=== PATIENT | male | born 1955 | race African-American/Black ===

== ENCOUNTER 2016-09-06 16:17 | Emergency (ER) | payer OTHER ==
[~2016-09-06] VITALS: Ht 177.8 cm; Wt 68.0 kg
[~2016-09-06 16:17] MED LIST: FLOMAX0.4 MG PO; IBUPROFEN 600600 M1 PO; IMITREX 6M6 MG/0.5 M; IMITREX 6M6 MG/0.5 M SQ; IMITREX6 MG/0.51 SQ; OXYCODONE HCL 55 MG PO; VERAPAMIL HCL 880 M1; ZOCOR 10 MG TAB10 MG PO
[2016-09-06] MEDS ORDERED: INDOMETHACIN 2525 MG PO (17:33)
[2016-09-06] MEDS ORDERED: IMITREX 6M6 MG/0.5 M SQ (17:33)
[2016-09-06] MEDS ORDERED: ONDANSETRON HCL4 M2 PO (17:33)
[2016-09-06 17:42] VITALS: BP 151/82
== END 2016-09-06 17:43 | disposition home or self-care (01) ==
LOC: ER 16:17
DX: G44.009 Cluster headache syndrome, unspecified, not intractable (principal); I10 Essential (primary) hypertension; Z88.6 Allergy status to analgesic agent

== ENCOUNTER 2017-05-01 03:31 | Emergency (ER) | payer OTHER ==
[~2017-05-01] VITALS: Ht 177.8 cm; Wt 79.4 kg
[~2017-05-01 03:31] MED LIST changes: -IMITREX 6M6 MG/0.5 M; +IMITREX 6M6 MG/0.5 M SUBQ; +IMITREX SUBQ; +INDOMETHACIN 2525 MG PO; +ONDANSETRON HCL4 M2 PO; +PERCOCET 7.5-31 EACH PO; -VERAPAMIL HCL 880 M1; +VERAPAMIL HCL 880 M1 PO
[2017-05-01] MEDS ORDERED: PHENERGAN 25 MG25 M1 PO (03:42)
[2017-05-01] MEDS ORDERED: PROMS25 WY RECTAL (03:42)
[2017-05-01 04:47] VITALS: BP 164/68
== END 2017-05-01 04:49 | disposition home or self-care (01) ==
LOC: ER 03:31
DX: G44.009 Cluster headache syndrome, unspecified, not intractable (principal); I10 Essential (primary) hypertension

== ENCOUNTER 2017-06-04 12:50 | Emergency (ER) | payer OTHER ==
[~2017-06-04] VITALS: Ht 177.8 cm; Wt 79.4 kg
[~2017-06-04 12:50] MED LIST changes: +PHENERGAN 25 MG25 M1 PO; +PROMS25 WY RECTAL
[2017-06-04] MEDS ORDERED: IMITREX 6M6 MG/0.5 M INJECTION (15:06)
== END 2017-06-04 15:39 | disposition home or self-care (01) ==
LOC: ER 12:50
DX: G44.009 Cluster headache syndrome, unspecified, not intractable (principal); I10 Essential (primary) hypertension; Z88.6 Allergy status to analgesic agent

== ENCOUNTER 2017-07-04 14:19 | Emergency (ER) | payer OTHER ==
[~2017-07-04] VITALS: Ht 177.8 cm; Wt 79.4 kg
[~2017-07-04 14:19] MED LIST changes: +IMITREX 6M6 MG/0.5 M INJECTION
[2017-07-04] MEDS ORDERED: IMITREX6 MG/0.51 SUBQ (15:15)
== END 2017-07-04 15:23 | disposition home or self-care (01) ==
LOC: ER 14:19
DX: G44.009 Cluster headache syndrome, unspecified, not intractable (principal); Z76.0 Encounter for issue of repeat prescription; I10 Essential (primary) hypertension; Z88.6 Allergy status to analgesic agent

== ENCOUNTER 2017-10-02 13:14 | Emergency (ER) | payer OTHER ==
[~2017-10-02 13:14] MED LIST changes: +IMITREX6 MG/0.51 SUBQ
[2017-10-02] MEDS ORDERED: LIDODERM1 EACH TOP (15:11)
[2017-10-02] MEDS ORDERED: ULTRAM 50MG TAB50 MG PO (15:11)
[2017-10-02 15:25] VITALS: BP 148/67
== END 2017-10-02 15:34 | disposition home or self-care (01) ==
LOC: ER 13:14
DX: S39.012A Strain of muscle, fascia and tendon of lower back, initial encounter (principal); I10 Essential (primary) hypertension; Z88.1 Allergy status to other antibiotic agents; V89.2XXA Person injured in unspecified motor-vehicle accident, traffic, initial encounter; Y93.89 Activity, other specified; Y92.89 Other specified places as the place of occurrence of the external cause; Y99.8 Other external cause status

== ENCOUNTER 2017-10-23 13:50 | Emergency (ER) | payer OTHER ==
[~2017-10-23] VITALS: Ht 177.8 cm; Wt 81.7 kg
[~2017-10-23 13:50] MED LIST changes: +LIDODERM1 EACH TOP; +ULTRAM 50MG TAB50 MG PO
[2017-10-23 15:59] VITALS: BP 142/66
== END 2017-10-23 15:46 | disposition home or self-care (01) ==
LOC: ER 13:50
DX: S01.81XD Laceration without foreign body of other part of head, subsequent encounter (principal); I10 Essential (primary) hypertension; G44.009 Cluster headache syndrome, unspecified, not intractable; Z88.6 Allergy status to analgesic agent; W25.XXXD Contact with sharp glass, subsequent encounter; Y92.89 Other specified places as the place of occurrence of the external cause; Y93.89 Activity, other specified; Y99.8 Other external cause status

== ENCOUNTER 2018-04-29 13:11 | Emergency (ER) | payer OTHER ==
[2018-04-29 13:13] VITALS: BP 151/74
[2018-04-29] MEDS ORDERED: IMITREX SUBQ (13:35)
[2018-04-29] MEDS ORDERED: IMITREX 6M6 MG/0.5 M SUBQ (13:48)
== END 2018-04-29 14:17 | disposition home or self-care (01) ==
LOC: ER 13:11
DX: G44.009 Cluster headache syndrome, unspecified, not intractable (principal); I10 Essential (primary) hypertension; Z88.6 Allergy status to analgesic agent

== ENCOUNTER 2018-07-11 07:17 | Inpatient (IN) | payer OTHER ==
[~2018-07-11] VITALS: Ht 177.8 cm; Wt 74.1 kg
[2018-07-11] VITALS (13 sets, daily range): BP systolic 72–147; BP diastolic 23–92
--- NOTE | ~2018-07-11 | EEG ---
[facility] [place] [address] ELECTROENCEPHALOGRAM Name: ZAKI EPSTEIN Room #: 244-P [facility] IN M.R.#: [id number] ������������������ Admission: 07/11/18 ������������������ Attend Phys: Aroldo Jefferson MD Discharge: ������������������ Date of : 55 Report #: [id number] ����������������������������������������������������������������� [id number] THIS REPORT FOR: //name// CC: Aroldo CASANOVA unknown DATE OF SERVICE: 07/11/2018 This patient is being evaluated for post cardiac arrest and seizure. The patient's EEG does not show any activity at 7 microvolts, but at 3 and 2 microvolt it does show low voltage activity. It is difficult to tell the frequency, but it does appear to be about 5-6 Hz, but less than 5 microvolt. The patient does appear to have intermittent seizure activity. Photic stimulation is unremarkable. IMPRESSION: This is a severely abnormal electroencephalogram, which demonstrates only low voltage activities. But the patient is on hypothermia protocol and this needs to be repeated when the patient is warmed up. The patient's electroencephalogram does show intermittent seizure activity. Thank you very much for this referral. ���������������������������������������� ���������������������������������������� By: ��������������������������������������������� 1749 1839 Jose Carlos Raza MD /nt
--- NOTE | ~2018-07-11 | HC ---
[facility] [place] [address] CONSULTATION Name: ZAKI EPSTEIN Room #: 244-P [facility] IN M.R.#: [id number] Admission: 07/11/18 ������������������ Attend Phys: Aroldo Jefferson MD Discharge: ������������������ Date of : 55 Report #: [id number] THIS REPORT FOR: //name// CC: Aroldo CASANOVA unknown DATE OF SERVICE: 07/11/2018 HISTORY OF PRESENT ILLNESS: The patient is a 63-year-old male who had an out of hospital cardiac arrest and CPR, was intubated blood pressure was markedly elevated, pulse in the 200s. He was noted to have atrial fibrillation. CTA was negative for pulmonary embolism and he is currently intubated in the intensive care unit. Drug screen was positive for cocaine and marijuana. He has been seen by Neurology, diagnosed with severe anoxic encephalopathy with marked myoclonus. He is currently undergoing cooling and is mechanically ventilated on a paralytic. We are seeing him in rehabilitation medicine consultation. PAST MEDICAL HISTORY: Cluster headaches. PAST SURGICAL HISTORY: Includes prostate CA. FAMILY HISTORY: Includes heart disease in his mother. HABITS: No history of tobacco or alcohol abuse. SOCIAL HISTORY: Unavailable at this time. He is noted to be . PHYSICAL EXAMINATION: He is currently in the intensive care unit undergoing cooling, orally intubated and mechanically ventilated. He is sedated. ASSESSMENT: 1. Severe anoxic encephalopathy with marked myoclonus. 2. Cardiac arrest. 3. Atrial fibrillation with rapid ventricular rate. 4. Acute hypoxic respiratory failure. 5. Acute renal insufficiency. 6. Metabolic acidosis with lactic acidosis. 7. Hypertension. 8. Drug screen positive for cocaine and marijuana. 9. History of cluster headaches. PLAN: We will follow along with you from the periphery for now. [facility] [address] [place] [address] CONSULTATION Name: ZAKI EPSTEIN Room #: 244-P [facility] IN M.R.#: [id number] Admission: 07/11/18 ������������������ Attend Phys: Aroldo Jefferson MD Discharge: ������������������ Date of : 55 Report #: [id number] Thank you for asking us to assist. ��������������������������������������������� ���������������������������������������� By: ��������������������������������������������� 1536 0148 Juwan Burden MD /nt
[2018-07-11 07:40] LABS: HEMATOCRIT 42.1 % (42.0-52.0); HEMOGLOBIN 13.3 gm/dL (14.0-18.0); MCH 28.9 pg (26.0-34.0); MCHC 31.7 g/dL (28.0-37.0); MCV 91.1 fL (80.0-100.0); PLATELET COUNT 215 thou/uL (150-400); RBC 4.62 mil/uL (4.50-6.00); RDW 16.4 % (10.5-14.5); WBC 12.6 thou/uL (4.0-11.0)
[2018-07-11 07:47] LABS: CALCIUM 8.8 mg/dL (8.5-10.1); CREATININE 1.6 mg/dL (0.7-1.3); POTASSIUM 3.7 mmol/L (3.5-5.1)
[2018-07-11 07:49] LABS: BE(vivo) -17.6 mmol/L (-2 to +3); HCO3 12.7 mmol/L (22.0-26.0); PCO2 47.6 mmHg (35.0-45.0); PO2 349.3 mmHg (80.0-100.0); pH 7.044 (7.360-7.450); sO2 99.6 % (92.0-98.0)
[2018-07-11 07:53] LABS: MAGNESIUM 2.3 mg/dL (1.8-2.4); PHOSPHORUS 6.4 mg/dL (2.5-4.9); TROPONIN-I 0.08 ng/mL (<0.06)
[2018-07-11 08:07] LABS: AMP/METHAMP Negative (Negative); BARBITURATES Negative (Negative); BENZODIAZEPINES Negative (Negative); COCAINE POSITIVE (Negative); METHADONE Negative (Negative); OPIATES Negative (Negative); PCP Negative (Negative)
[2018-07-11 08:51] LABS: ANISOCYTOSIS 1+
[2018-07-11 08:53] LABS: ATYPICAL LYMPHS 6 %
--- NOTE | 2018-07-11 09:43 | EKG ---
[address] [address] ELECTROCARDIOGRAM REPORT Name: ZAKI EPSTEIN Room #: 170-12 ADM IN M.R.#: [id number] ������������������ Admission: 07/11/18 ������������������ Attend Phys: Aroldo Jefferson MD Discharge: ������������������ Date of : 55 Report #: [id number] ����������������������������������������������������������������� [id number] THIS REPORT FOR: //name// [facility] ED Test Date: 2018-07-11 Test Time: 07:24:13 Pat Name: ZAKI EPSTEIN Department: Room: 170 Gender: M Oracle Database Developer: JESSICA : 1955 Requested By: Sridhar Montoya Order Number: [id number] MD: Don Hernandez Measurements Intervals [place] Rate: 190 P: 45 ID: 120 QRS: 66 QRSD: 99 T: 65 QT: 295 QTc: 525 Interpretive Statements Atrial fibrillation with a rapid ventricular response Left ventricular hypertrophy Inferior infarct, possibly acute (RCA) Compared to ECG 09/18/2013 15:50:47 Atrial fibrillation is now present Possible inferior repolarization abnormality is now present Electronically Signed On 07-11-2018 9:43:05 CLINICAL SUPERVISOR by Don Hernandez [email or web address] ��������������������������������������������� <ELECTRONICALLY SIGNED> ���������������������������������������� By: Don Hernandez MD, [facility] ��������������������������������������������� 07/11/18 0943 0724 0724 Don Hernandez MD, [facility] /EPI
--- NOTE | 2018-07-11 10:00 | NUR ---
EPI GIVEN X [address] RECEIVER STOCKER 0717: PT ARRIVES/ACLS IN PROGRESS AND CONTINUES VIA ED STAFF/EPI GIVEN 07: PULSE CHECK (DELAY PER MD REQUEST AT BEDSIDE), NO PULSE 0722: PT INTUBATED 7.5 (24 AT THE GUMS)/OG [address] EPI #3 GIVEN 0724: PULSE CHECK = PULSE PALPATED BY 2 STAFF ADENOSINE GIVEN IV PER PROVIDER 0726: AMIODARONE 150MG GIVEN IV 0729: BP 147/76 0734: ALVARADO 16 FR PLACED AND DRAINING DARK, CLEAR URINE 0735: BP 155/88 HR 110 RESP 18 O2 100% ON VENT AMIO GTT INFUSING WITH FILTERED TUBING PER PROTOCOL 0736: HYPOTHERMIA INITIATED 0738: RECTAL TEMP 97.9 0849: VSS X 3-OK TO CT PER PROVIDER 0905: RETURNED FROM CT-BP 111/59 HR 58 R 22 O2 100% ON VENT 0910: VENT ALARMED AND RT REQUESTED TO BEDSIDE-ON UNIT ALREADY 0911: BP 96/45 HR 49 R 17 O2 87% VENT-MD AWARE-NO NEW ORDERS AT THAT TIME 0919: BP 88/48 HR 49 R 17 O2 87% VENT-PROPOFOL AND AMIO GTTS D/C PER ED 0921: REPEAT EKG DONE BY ODALYS MEDINA 0926: BP 86/47 HR 50 R 15 O2 99 VENT 0927: STEMI ACTIVATED 0946: TO PUSH BUTTON SWITCH ASSEMBLER
[2018-07-11 10:25] LABS: CHOLESTEROL 140 mg/dL (<200); HDL CHOLESTEROL 43 mg/dL (>40); LDL CHOLESTEROL 67 mg/dL (<100); TC:HDL 3.3 Ratio (Not establshd); TRIGLYCERIDE 150 mg/dL (<150); VLDL 30 mg/dL (<40)
--- NOTE | 2018-07-11 12:44 | EKG ---
[address] [address] ELECTROCARDIOGRAM REPORT Name: ZAKI EPSTEIN Room #: 244-P ADM IN M.R.#: [id number] ������������������ Admission: 07/11/18 ������������������ Attend Phys: Aroldo Jefferson MD Discharge: ������������������ Date of : 55 Report #: [id number] ����������������������������������������������������������������� [id number] THIS REPORT FOR: //name// [facility] ED Test Date: 2018-07-11 Test Time: 09:21:16 Pat Name: ZAKI EPSTEIN Department: Room: [facility] Gender: M Freight Associate: JESSICA : 1955 Requested By: Sridhar Montoya Order Number: [id number] MD: Harry Blair Measurements Intervals [place] Rate: 50 P: 0 TN: 240 QRS: 87 QRSD: 120 T: 87 QT: 540 QTc: 493 Interpretive Statements Junctional rhythm. Compared to ECG 09/18/2013 15:50:47 Electronically Signed On 07-11-2018 12:44:22 SYRUP MAKER COOK by Harry Blair [email or web address] ��������������������������������������������� <ELECTRONICALLY SIGNED> ���������������������������������������� By: Harry Blair MD ��������������������������������������������� 07/11/18 1244 D: [id number] 0 Harry Blair MD /RASHAWN
--- NOTE | 2018-07-11 13:45 | NUR ---
VASCULAR ACCESS CONSULTED FOR PICC LINE. PT'S LABS,MEDS,HX,ORDER AND CONSENT VERIFIED. PT WAS PREPPED AND DRAPED FOR MAX BARRIER PRECAUTIONS. DIO BRACHIAL WAS WIDELY PATENT WITH USG,15 LIDOCAINE GIVEN SQ. 5FR TL POWER PICC TRIMMED TO 46CM INSERTED TO 1CM EXTERNAL. PICC SECURED AND STAT CXR OBTAINED.
--- NOTE | 2018-07-11 14:09 | NUR ---
PICC WITHDREW TOTAL EXTERNAL 4CM. DRESSING APPLIED AND RELEASED FOR IMMEDIATE USE PER PROTOCOL TO MARCUS JORDAN
[2018-07-11 14:48] LABS: D-DIMER 32.4 ug/mLFEU (0.19-0.50); FIBRINOGEN 209.4 mg/dL (210-360)
[2018-07-11 16:24] LABS: BE(vivo) -17.9 mmol/L (-2 to +3); HCO3 10.8 mmol/L (22.0-26.0); PCO2 35.6 mmHg (35.0-45.0); PO2 87.9 mmHg (80.0-100.0); pH 7.101 (7.360-7.450); sO2 93.3 % (92.0-98.0)
--- NOTE | 2018-07-11 16:37 | NUR ---
PT IS NONRESPONSIVE POST CODE. DR. BSIWAS TALK WITH PT FAMILY IN REGARDS TO PLAN OF CARE. TAKEN TO THE WEB DESIGNER AND THEN BROUGHT TO THE ICU. HYPOTHERMIA PROTOCAL STARTED AND INITIATED IN ICU. SINUS RHYTHM [address] DREGREE BBB. IN ICU. STARTED ON DRIPS TO MAINTAIN BLOOD PRESSURE SUPPORT. REMAINS ON THE VENT POST CODE. ALVARADO CATH IN PLACE. SCDS ON BILATERAL. COOLING PROCESS STARTED. FAMILY UP DATED ON PTS PLAN OF CARE FOR POST CODE IN THE ICU. PULMONARY SPOKE AT LENGTH WITH FAMILY IN REGARDS TO CARE.
[2018-07-11 16:55] LABS: HEMOGLOBIN 12.6 gm/dL (14.0-18.0)
[2018-07-11 16:57] LABS: HEMATOCRIT 38.6 % (42.0-52.0); MCH 29.5 pg (26.0-34.0); MCHC 32.7 g/dL (28.0-37.0); MCV 90.2 fL (80.0-100.0); RBC 4.28 mil/uL (4.50-6.00); RDW 16.4 % (10.5-14.5)
[2018-07-11 17:04] LABS: CALCIUM 6.9 mg/dL (8.5-10.1)
[2018-07-11 17:05] LABS: CREATININE 2.6 mg/dL (0.7-1.3)
[2018-07-11 17:06] LABS: POTASSIUM 7.6 mmol/L (3.5-5.1)
[2018-07-11 17:14] LABS: ALBUMIN 2.2 g/dL (3.4-5.0); MAGNESIUM 2.3 mg/dL (1.8-2.4); TOTAL BILIRUBIN 1.2 mg/dL (<0.1-1.0)
[2018-07-11 17:30] LABS: BE(vivo) -14.9 mmol/L (-2 to +3); HCO3 13.4 mmol/L (22.0-26.0); PCO2 40.4 mmHg (35.0-45.0); PO2 80.4 mmHg (80.0-100.0); sO2 92.2 % (92.0-98.0)
[2018-07-11 21:14] LABS: HEMOGLOBIN 13.5 gm/dL (14.0-18.0); MCHC 32.3 g/dL (28.0-37.0)
[2018-07-11 21:16] LABS: HEMATOCRIT 41.8 % (42.0-52.0); MCH 29.1 pg (26.0-34.0); MCV 90.1 fL (80.0-100.0); PLATELET COUNT 31 thou/uL (150-400); RBC 4.64 mil/uL (4.50-6.00); RDW 16.3 % (10.5-14.5); WBC 19.9 thou/uL (4.0-11.0)
[2018-07-11 21:31] LABS: CALCIUM 7.7 mg/dL (8.5-10.1); CREATININE 2.7 mg/dL (0.7-1.3); MAGNESIUM 2.2 mg/dL (1.8-2.4)
[2018-07-11 21:32] LABS: POTASSIUM 6.5 mmol/L (3.5-5.1); TROPONIN-I 17.25 ng/mL (<0.06)
[2018-07-11 21:50] LABS: BE(vivo) -10.4 mmol/L (-2 to +3); HCO3 17.5 mmol/L (22.0-26.0); PCO2 46.3 mmHg (35.0-45.0); PO2 88.7 mmHg (80.0-100.0); sO2 94.7 % (92.0-98.0)
[2018-07-11 21:51] LABS: pH 7.196 (7.360-7.450)
[2018-07-11 22:36] LABS: ABSOLUTE NEUTROPHILS 15.9 thou/uL (1.4-8.2)
[2018-07-11 22:38] LABS: LARGE PLATELETS SEVERAL; PLATELET ESTIMATE MARKEDLY DECREASED; POLYCHROMASIA 1+
[2018-07-11 22:39] LABS: ANISOCYTOSIS 1+
[2018-07-12] VITALS (17 sets, daily range): BP systolic 77–105; BP diastolic 37–54
--- NOTE | 2018-07-12 03:48 | NUR ---
ASSUMED CARE OF PT AT 1900. PT UNRESPONSIVE ON PROPOFOL PER VENT AND SEIZURE MANAGMENT. PT DOES HAVE SOME UNDERLYING SEIZURE ACTIVIY (GENERALIZED SPONTANEOUS MOVEMENT OF TORSO EVEN WITHOUT SUBCUTANEOUS PACING). ATIVAN IV ORDERED PER YOUTH MINISTRY DIRECTOR. PT ABLE TO TITRATE OFF LEVO GTT AND DOBUTAMINE GTT. REMAINS ON DOPAMINE GTT WITH ADEQUATE HR AND BP. SUBCUTANEOUS PACING TURNED DOWN TO RATE OF 60 AND PATIENT'S UNDERLYING RHYTHM IS NORMAL SINUS RHYTHM. PT HEMODYNAMICALLY STABLE AT THIS TIME. FAMILY UPDATED ON PATIENT STATUS. POTASSIUM REMAINS CRITICALLY HIGH DR PARKS UPDATED. PT IS DIURESING WELL. NO BM. WILL CONTINUE TO MONITOR PT.
[2018-07-12 05:11] LABS: MCH 29.3 pg (26.0-34.0); RBC 4.44 mil/uL (4.50-6.00); WBC 17.2 thou/uL (4.0-11.0)
[2018-07-12 05:13] LABS: HEMATOCRIT 39.2 % (42.0-52.0); MCHC 33.2 g/dL (28.0-37.0); MCV 88.4 fL (80.0-100.0); RDW 15.9 % (10.5-14.5)
[2018-07-12 05:30] LABS: CALCIUM 7.2 mg/dL (8.5-10.1); CREATININE 2.7 mg/dL (0.7-1.3)
[2018-07-12 05:33] LABS: BE(vivo) -2.7 mmol/L (-2 to +3); HCO3 21.8 mmol/L (22.0-26.0); PCO2 37.1 mmHg (35.0-45.0); PO2 128.9 mmHg (80.0-100.0); pH 7.387 (7.360-7.450); sO2 98.6 % (92.0-98.0)
[2018-07-12 07:02] LABS: MAGNESIUM 1.9 mg/dL (1.8-2.4)
[2018-07-12 07:04] LABS: TROPONIN-I 25.81 ng/mL (<0.06)
--- NOTE | 2018-07-12 07:34 | NUR ---
ASSUMED CARE OF PT AT 1900. PT ALERT AND ORIENTED X4. NO SIGNS OF ACTIVELY BLEEDING NOTED. HGB THIS AM 6.4. CALLED DR MENDEZ TO REPORT CRITICAL LAB VALUE. ORDERS FOR TRANSFUSION GIVEN. PT SR ON THE MONITOR. TACHYCARDIC WITH ACTIVITY. PT DENIES ANY PAIN. NO BM THIS SHIFT. PT DOES DRIBBLE WITH URINATING. LINENS CHANGED THIS AM.
--- NOTE | 2018-07-12 08:24 | EKG ---
[address] [address] ELECTROCARDIOGRAM REPORT Name: ZAKI EPSTEIN JR Room #: 244-P ADM IN M.R.#: [id number] ������������������ Admission: 07/11/18 ������������������ Attend Phys: Aroldo Jefferson MD Discharge: ������������������ Date of : 55 Report #: [id number] ����������������������������������������������������������������� [id number] THIS REPORT FOR: //name// [facility] Test Date: 2018-07-12 Test Time: 06:55:04 Pat Name: ZAKI EPSTEIN Department: Room: 244 P Gender: M Testboard Operator: ANEL : 1955 Requested By: Monie Gomez Order Number: [id number] MD: Don Hernandez Measurements Intervals [place] Rate: 81 P: 66 SD: 143 QRS: 16 QRSD: 92 T: -55 QT: 472 QTc: 548 Interpretive Statements Sinus rhythm Abnrm T, consider ischemia, anterolateral lds Anterior ST elevation, probably due to LVH Prolonged QT interval Compared to ECG 07/11/2018 09:21:[address] and T wave abnormality more pronounced inferior repolarization abnormality less pronounced Prolonged QT interval now present Junctional rhythm no longer present Electronically Signed On 07-12-2018 8:24:33 [employer]ATTLE PRODUCERS by Don Hernandez [email or web address] ��������������������������������������������� <ELECTRONICALLY SIGNED> ���������������������������������������� By: Don Hernandez MD, FAC ��������������������������������������������� 07/12/18 0824 0655 0655 Don Hernandez MD, [facility] /EPI
--- NOTE | 2018-07-12 10:13 | 2DMMODE ---
[facility] [place] [address] 2 D/M-MODE ECHOCARDIOGRAM Name: ZAKI EPSTEIN Room #: 244-P ADM IN M.R.#: [id number] ������������� Admission: 07/11/18 ������������� Attend Phys: Aroldo Jefferson MD Discharge: ��� ������������� ��� Date of : 55 Date of Service: 07/12/18 1012 �� Report #: [id number] �������� ��������������������������������������������[id number] THIS REPORT FOR: //name// APPROVED REPORT Study performed: 07/12/2018 07:45:28 EXAM: Comprehensive 2D, Doppler, and color-flow Echocardiogram Patient Location: ICU Room #: [facility] Status: routine BSA: 2.00 HR: 83 bpm BP: 116/47 mmHg Rhythm: NSR Other Information Study Quality: Good/In ICU on vent, flat on back. Indications STEMI, out of hospital cardiac arrest. 2D Dimensions RVDd: 39.00 mm IVSd: 13.00 (7-11mm) LVOT Diam: 22.30 (18-24mm) LVDd: 55.00 mm PWd: 13.00 (7-11mm) Ascending Ao: 29.30 (22-36mm) LVDs: 44.00 (25-40mm) Aortic Root: 32.73 mm Volumes Left Atrial Volume (Systole) Single Plane 4CH: 63.59 mL Single Plane 2CH: 82.15 mL LA ESV Index: 39.00 mL/m2 Aortic Valve AoV Peak Brandon.: 2.75 m/s AO Peak Gr.: 30.26 mmHg LVOT Max P.17 mmHg AO Mean Gr.: 16.34 mmHg AO V2 Mean: 1.91 m/s LVOT Max V: 1.51 m/s AO V2 VTI: 44.23 cm SRUTHI Vmax: 2.15 cm2 AI Vmax: 3.76 m/s AI Reeves: 3.62 m/s2 AI PHT: 301.74 ms [facility] [place] [address] 2 D/M-MODE ECHOCARDIOGRAM Name: EPSTEINMAUROZAKI Room #: 244-P [facility] IN .R.#: [id number] ������������� Admission: 07/11/18 ������������� Attend Phys: Aroldo Jefferson MD Discharge: ��� ������������� ��� Date of : 55 Date of Service: 07/12/18 1012 �� Report #: [id number] �������� ��������������������������������������������[id number] Mitral Valve E/A Ratio: 0.9 MV Decel. Time: 162.72 ms MV E Max Brandon.: 0.79 m/s MV A Brandon.: 0.92 m/s MV PHT: 47.19 ms IVRT: 78.43 ms Pulmonary Valve PV Peak Brandon.: 1.14 m/s PV Peak Gr.: 5.17 mmHg Pulmonary Vein P Vein S: 0.50 m/s P Vein D: 0.34 m/s P Vein S/D Ratio: 1.47 Tricuspid Valve TR Peak Brandon.: 2.27 m/s RAP Estimate: 10.00 mmHg TR Peak Gr.: 20.57 mmHg PA Pressure: 31.00 mmHg Left Ventricle The left ventricle is normal size. Mild concentric left ventricular hypertrophy. Left ventricular systolic function is moderately decreased. LVEF is 35%. Mild diastolic dysfunction is present (impaired relaxation pattern). Right Ventricle The right ventricle is normal size. Right ventricle is mildly hypokinetic. Atria Left atrium is mildly dilated. Right atrium is at the upper limits of normal. Aortic Valve Aortic valve is moderately calcified but has adequate excursion. Moderate to severe aortic regurgitation Mitral Valve Mitral valve leaflets are mildly thickened. Mild mitral annular calcification. Trace mitral regurgitation. No evidence of mitral valve stenosis. Tricuspid Valve [address] [address] 2 D/M-MODE ECHOCARDIOGRAM Name: ZAKI EPSTEIN Room #: 244-P [facility] IN .#: [id number] ������������� Admission: 07/11/18 ������������� Attend Phys: Aroldo Jefferson MD Discharge: ��� ������������� ��� Date of : 55 Date of Service: 07/12/18 1012 �� Report #: [id number] �������� ��������������������������������������������[id number] The tricuspid valve is normal in structure. Mild tricuspid regurgitation. Estimated PAP is 30-35mmHg. Pulmonic Valve The pulmonary valve is normal in structure. Mild pulmonic regurgitation. Great Vessels The aortic root is normal in size. The ascending aorta is normal in size. IVC is dilated and collapses <50% with inspiration. Pericardium There is no pericardial effusion. Left and right pleural effusions noted. <Conclusion> The left ventricle is normal size. LVEF is 35%. Left atrium is mildly dilated. Aortic valve is moderately calcified but has adequate excursion. Moderate to severe aortic regurgitation Mitral valve leaflets are mildly thickened. Mild mitral annular calcification. Trace mitral regurgitation. The tricuspid valve is normal in structure. Mild tricuspid regurgitation. Estimated PAP is 30-35mmHg. The pulmonary valve is normal in structure. There is no pericardial effusion. ��������������������������������������������� <ELECTRONICALLY SIGNED> ���������������������������������������� By: Gen Ansari MD ��������������������������������������������� 07/12/18 1012 1012 1012 Gen Ansari MD /INF
[2018-07-12 12:30] LABS: HEMATOCRIT 36.9 % (42.0-52.0); HEMOGLOBIN 12.4 gm/dL (14.0-18.0); MCH 29.3 pg (26.0-34.0); MCHC 33.6 g/dL (28.0-37.0); MCV 87.1 fL (80.0-100.0); RBC 4.24 mil/uL (4.50-6.00); RDW 15.4 % (10.5-14.5); WBC 13.7 thou/uL (4.0-11.0)
[2018-07-12 12:31] LABS: PLATELET COUNT 37 thou/uL (150-400)
[2018-07-12 12:41] LABS: ALBUMIN 2.4 g/dL (3.4-5.0); CALCIUM 7.3 mg/dL (8.5-10.1); CREATININE 2.8 mg/dL (0.7-1.3); MAGNESIUM 1.8 mg/dL (1.8-2.4); POTASSIUM 4.1 mmol/L (3.5-5.1); TOTAL BILIRUBIN 1.1 mg/dL (<0.1-1.0); TOTAL PROTEIN 5.3 g/dL (6.4-8.2)
[2018-07-12 12:41] LABS: BE(vivo) 2.7 mmol/L (-2 to +3); HCO3 26.5 mmol/L (22.0-26.0); PCO2 38.1 mmHg (35.0-45.0); PO2 91.2 mmHg (80.0-100.0); pH 7.461 (7.360-7.450); sO2 97.4 % (92.0-98.0)
[2018-07-12 12:53] LABS: TROPONIN-I 34.47 ng/mL (<0.06)
[2018-07-12 12:56] LABS: ABSOLUTE NEUTROPHILS 12.3 thou/uL (1.4-8.2); ANISOCYTOSIS 1+; LARGE PLATELETS FEW; NUCLEATED RBCS 1 /100WBC; PLATELET ESTIMATE MARKEDLY DECREASED
--- NOTE | 2018-07-12 13:27 | NUR ---
INITIAL ASSESSMENT: Pt evaluated for d/c planning needs. Reviewed chart and spoke with nurse. Multiple family members at bedside. Pt is currently intubated. Notes indicate pt has poor prognosis. Will remain available to assist as needed.
--- NOTE | 2018-07-12 17:32 | HC ---
[facility] [place] [address] CONSULTATION Name: ZAKI EPSTEIN Room #: 244-P ADM IN M.R.#: [id number] Admission: 07/11/18 ������������������ Attend Phys: Aroldo Jefferson MD Discharge: ������������������ Date of : 55 Report #: [id number] THIS REPORT FOR: //name// CC: Aroldo Jefferson FAM unknown REFERRING PHYSICIAN: Dr. Jefferson. REASON FOR REFERRAL: Cardiac arrest. HISTORY OF PRESENT ILLNESS: The patient is a 63-year-old -[place] male who presents to the Emergency Room with cluster headaches, confusion, sweating. On the way to the Emergency Room, he had an apparent cardiac arrest. In the ER, CPR was given. He was intubated. EKG shows ST changes. He was taken to the senior laboratory technician. He was found to have severe cardiomyopathy. Urine drug screen was positive for cocaine and marijuana. He is currently intubated. He is planning to undergone hypothermia protocol. PAST MEDICAL HISTORY: Notable for hypertension, cluster headaches. PAST SURGICAL HISTORY: Unknown. ALLERGIES: None to medications. He is intolerant to ACETAMINOPHEN causing stomach irritation. HOME MEDICATIONS: Imitrex, verapamil. FAMILY HISTORY: Unknown. SOCIAL HISTORY: Apparent drug abuse including cocaine, marijuana. Tobacco, alcohol is unknown. REVIEW OF SYSTEMS: Deferred as the patient is intubated. PHYSICAL EXAMINATION: GENERAL: He is sedated, currently in cooling. VITAL SIGNS: Presently, he is junctional with heart rate around 30s to 40s with an adequate blood pressure. Saturation is 89%. Temperature is 98 degrees Fahrenheit, pulse was 160, currently is 50 beats per minute, blood pressure 120/80 mmHg, saturation 100%. HEENT: Normocephalic, atraumatic. NECK: Supple without any lymphadenopathy or thyromegaly. He is orally intubated. CHEST: Breath sounds are coarse bilaterally. [facility] [address] [place] [address] CONSULTATION Name: ZAKI EPSTEIN Room #: 244-P [facility] IN ..#: [id number] Admission: 07/11/18 ������������������ Attend Phys: Aroldo Jefferson MD Discharge: ������������������ Date of : 55 Report #: [id number] CARDIOVASCULAR: Heart sounds are distant. No obvious murmurs or gallop. Pulses are decreased at 104+ bilaterally. ABDOMEN: Soft, no masses felt. GENITOURINARY: Deferred. RECTAL: Deferred. EXTREMITIES: Without edema, cyanosis or clubbing. LABORATORY DATA: Portable chest x-ray performed today shows cardiomegaly, mild bilateral interstitial edema. CT chest angiogram shows no evidence of pulmonary embolus, study was limited, bilateral infiltrates, mild bilateral effusion, cardiomegaly. Electrolytes on admission, sodium 141, potassium 3.7, chloride 105, CO2 23. BUN is 16, creatinine is 1.6. WBC 12,600 hemoglobin is normal, platelets are normal, no evidence of bandemia. Glucose is 241. Troponin 0.08. Arterial blood gas revealed pH 7.04, pCO2 of 47, pO2 of 349. IMPRESSION: 1. Cardiac arrest in this 63-year-old -[place] male. He was felt to have severe cardiomyopathy, likely related to illicit drug use. 2. Acute hypoxic hypercapnic respiratory failure due to above. 3. Profound acidosis, mixed metabolic and respiratory. 4. Presumed acute kidney injury due to cardiac arrest resulting in acute tubular necrosis. 5. Polysubstance drug abuse. 6. Probable severe anoxic brain injury. 7. Atrial fibrillation with rapid ventricular response. RECOMMENDATION: Given hemodynamic instability along with junctional rhythm, hypothermia protocol may need to be discontinued. Cardiology has been notified. We will continue mechanical ventilation, correct acid base status, arterial blood gases yet to be drawn, one has been ordered stat. We will need to correct acid base disorder. He will need to be monitored for urine output closely. Pressure support as necessary with vasopressors. Overall, prognosis felt to be quite guarded given severe cardiomyopathy, cardiac arrest, probable hypoxic brain injury. Family is made aware as Cardiology discussing with family. Thank you for this consultation. ��������������������������������������������� <ELECTRONICALLY SIGNED> ���������������������������������������� By: Alexis Gutierrez MD ��������������������������������������������� 07/12/18 1732 1621 0312 Alexis Gutierrez MD /nt
--- NOTE | 2018-07-12 17:47 | NUR ---
PT IS UNRESPONSIVE FOLLOWS NO COMMANDS. NEURO HERE TODAY AND SEEN PT. PT HAS MILD SEIZURE ACTIVITY NOTED. INFORMED NEURO TODAY AND MED DOSE AJUSTED. REMAINS ON THE VENT. NO GAG NOTED. LUNGS ARE CLEAR TO DIMINISHED. SECREATIONS ARE THIN WHITE. SINUS TACHYCARDIA NOTED ON THE MONITOR. BOWEL SOUNDS HYPOACTIVE. ALVARADO GOOD URINE OUTPUT. SCDS BILATERAL. FAMILY AT BEDSIDE TODAY FOR SUPPORT. REMAINS ON BLOOD PRESSURE SUPPORT DRIPS. WILL CONTINUE TO ASSESS AND MONITOR PER NURSING. AND KEEP CARDIOLOGY UPDATED ON PTS STATUS.
[2018-07-13] VITALS (16 sets, daily range): BP systolic 107–146; BP diastolic 56–77
--- NOTE | 2018-07-13 03:04 | NUR ---
SPOKE TO DR ANDREW AT 0254 REGARDING PATIENT'S INCREASING BLOOD PRESSURE. BLOOD PRESSURE 170s SYSTOLIC. DR ANDREW OK WITH TAKING PATIENT OFF DOBUTAMINE GIVEN HIS CURRENT BLOOD PRESSURE. WILL CONTINUE TO MONITOR.
[2018-07-13 04:38] LABS: MCV 87.3 fL (80.0-100.0); PLATELET COUNT 41 thou/uL (150-400)
[2018-07-13 04:40] LABS: HEMATOCRIT 38.9 % (42.0-52.0); HEMOGLOBIN 12.8 gm/dL (14.0-18.0); MCH 28.6 pg (26.0-34.0); MCHC 32.8 g/dL (28.0-37.0); RBC 4.46 mil/uL (4.50-6.00); RDW 15.5 % (10.5-14.5); WBC 12.7 thou/uL (4.0-11.0)
[2018-07-13 04:49] LABS: ALBUMIN 2.5 g/dL (3.4-5.0); CALCIUM 7.1 mg/dL (8.5-10.1); PHOSPHORUS 5.6 mg/dL (2.5-4.9); POTASSIUM 3.8 mmol/L (3.5-5.1)
[2018-07-13 05:10] LABS: BE(vivo) -0.2 mmol/L (-2 to +3); HCO3 23.3 mmol/L (22.0-26.0); PCO2 34.7 mmHg (35.0-45.0); pH 7.445 (7.360-7.450); sO2 99.7 % (92.0-98.0)
[2018-07-13 06:16] LABS: ABSOLUTE NEUTROPHILS 10.5 thou/uL (1.4-8.2); NUCLEATED RBCS 2 /100WBC
[2018-07-13 06:17] LABS: PLATELET ESTIMATE MARKEDLY DECREASED; POLYCHROMASIA 1+
--- NOTE | 2018-07-13 10:32 | NUR ---
Nutrition: if plan of care is aggressive REC initiate enteral feedings of Vital HP to reach goal of 65 mL/hr.
--- NOTE | 2018-07-13 15:03 | NUR ---
PATIENT IS INTUBATED, SEDATED, AND HAS POOR PROGNOSIS; PT IS NOT A CANDIDATE FOR OCCUPATIONAL THERAPY; PHONE CALL TO DR. PRASAD, WHO ORDERED O.T. AND P.T. DR. PRASAD STATED THE ORDER MUST OF BEEN IN ERROR AND THAT PT IS NOT APPROPRIATE FOR O.T. OR P.T.
--- NOTE | 2018-07-13 16:36 | NUR ---
ASSUMED CARE OF PT AT 0700 THIS SHIFT. PT HAS INUBATED AND SEDADTED, UNRESPONSIVE, DOES NOT APPEAR TO BE IN PAIN. PT IS STILL HYPERTENSIVE THIS SHIFT, MEDS STARTED PER TUBE. DR MERCER HAD A CONVERSATION WITH PT'S SPOUSE ABOUT PROGNOSIS AND PT'S STATUS. PT CURRENTLLY APPEARS TO BE RESTING COMFORTABLY IN ROOM. PT HAS HAD FAMILY VISIT THIS SHIFT, EDUCATION WAS PROVIDED. PLAN OF CARE IS TO CONTINUE TO MONITOR PT CLOSELY AT THIS TIME.
--- NOTE | 2018-07-13 20:47 | NUR ---
ASSUMED CARE OF PT AT 0. PT ON NO SEDATION. LINDA COMA SCALE 3. PT DOES HAVE A STRONG COUGH AND PUPILS REACTIVE TO LIGHT, BUT DOES NOT OPEN EYES SPONTANEOUSLY AT THIS TIME. MTN NOTIFIED AT 2041 REGARDING PATIENTS PRESENTATION. REFERAL NUMBER GIVEN AND PLACED IN CHART. WILL CONTINUE TO MONITOR PT.
[2018-07-14] VITALS (22 sets, daily range): BP systolic 99–131; BP diastolic 47–69
[2018-07-14 04:58] LABS: HEMATOCRIT 38.1 % (42.0-52.0); HEMOGLOBIN 12.7 gm/dL (14.0-18.0); MCH 29.1 pg (26.0-34.0); MCHC 33.3 g/dL (28.0-37.0); MCV 87.3 fL (80.0-100.0); RBC 4.36 mil/uL (4.50-6.00); RDW 15.5 % (10.5-14.5); WBC 14.1 thou/uL (4.0-11.0)
[2018-07-14 05:02] LABS: ALBUMIN 2.3 g/dL (3.4-5.0); CALCIUM 8.1 mg/dL (8.5-10.1); CREATININE 2.4 mg/dL (0.7-1.3); PHOSPHORUS 3.5 mg/dL (2.5-4.9); POTASSIUM 3.6 mmol/L (3.5-5.1)
--- NOTE | 2018-07-14 17:10 | NUR ---
PT UNRESPONSIVE TO NOXIOUS STIMULI. HE DOES OVERBREATHE THE VENT AND HAS +COUGH REFLEX. RIGHT EYE CLOUDED OVER AND UNABLE TO VISUALIZE PUPIL. LEFT EYE INTERMITTANTLY NONRESPONSIVE. THIS AFTERNOON BRISK AND 5MM. REMAINS LIGHTLY SEDATED WITH PROPOFOL. WHEN PROPOFOL OFF, PEAK AIRWAY PRESSURES VERY HIGH AND HAVING MYOCLONIC TYPE JERKING MOTIONS. DR VALDIVIA MET WITH FAMILY THIS AM AND DISCUSSED PT STATUS. RIGHT FEMORAL A-LINE, VENOUS SHEATH, AND SWAN SRIDEVI DISCONTINUED THIS AFTERNOON. DECREASING PEEP ORDERED. STARTED ON TUBE FEEDING PER OG TUBE. PT'S AT BEDSIDE AND UPDATED. WILL CONTINUE TO MONITOR PT.
[2018-07-15] VITALS (47 sets, daily range): BP systolic 96–149; BP diastolic 43–72
[2018-07-15 04:48] LABS: HEMATOCRIT 37.5 % (42.0-52.0); HEMOGLOBIN 12.3 gm/dL (14.0-18.0); MCH 28.7 pg (26.0-34.0); MCHC 32.8 g/dL (28.0-37.0); MCV 87.6 fL (80.0-100.0); RBC 4.28 mil/uL (4.50-6.00); RDW 15.7 % (10.5-14.5); WBC 15.7 thou/uL (4.0-11.0)
[2018-07-15 05:03] LABS: ALBUMIN 2.2 g/dL (3.4-5.0); CALCIUM 8.2 mg/dL (8.5-10.1); DIRECT BILIRUBIN 0.6 mg/dL (<0.1-0.3); PHOSPHORUS 2.5 mg/dL (2.5-4.9); POTASSIUM 3.4 mmol/L (3.5-5.1); TOTAL BILIRUBIN 1.3 mg/dL (<0.1-1.0); TOTAL PROTEIN 5.7 g/dL (6.4-8.2)
--- NOTE | 2018-07-15 06:40 | NUR ---
ASSUMED CARE OF PT AT 1900. PT NONRESPONSIVE, ONLY HAS SOME TWITCHING/JERKING; NOTHING IS PURPOSEFUL. PROPOFOL GTT AT LOW RATE TO KEEP TWITCHING/JERKING UNDER CONTROL; SUPPLEMENTED WITH ATIVAN, WHICH HELPED TO RELAX PT. PT IN SINUS RHYTHM AND BP STABLE OVERNIGHT. ASSESSMENTS AND VITALS DOCUMENTED. WILL CONTINUE TO MONITOR.
[2018-07-15 13:45] LABS: BE(vivo) 3.5 mmol/L (-2 to +3); HCO3 26.4 mmol/L (22.0-26.0); PCO2 34.6 mmHg (35.0-45.0); PO2 99.4 mmHg (80.0-100.0)
--- NOTE | 2018-07-15 17:34 | NUR ---
PT IS NON RESPONSIVE FAMILY AT BEDSIDE FOR SUPPORT TODAY. PT TAKEN DOWN FOR CT TODAY. LUNGS ARE CLEAR TO DIMINISHED. TOLERATING TUBE FEEDING. NO RESIDUAL NOTED. ALVARADO CATH TO DD WITH EMILY URINE NOTED. SCDS BILATERAL. REMAINS ON THE VENT. TURN Q 2 HOURS. MODERATE YELLOW SECREATIONS NOTED. SUCTION FREQUENTLY. WILL COTINUE TO MONITOR AND ASSESS PER NURSING. FAMILY AWAITING TEST RESULTS AND TO SPEAK TO NEUROLOGIST. NSR ON THE IMAGING ADMINISTRATOR AND VS STABLE
[2018-07-16] VITALS (44 sets, daily range): BP systolic 93–145; BP diastolic 15–83
[2018-07-16 05:28] LABS: BE(vivo) 2.1 mmol/L (-2 to +3); PCO2 38.3 mmHg (35.0-45.0); PO2 134.2 mmHg (80.0-100.0); sO2 98.8 % (92.0-98.0)
[2018-07-16 06:16] LABS: HEMATOCRIT 36.9 % (42.0-52.0); HEMOGLOBIN 12.3 gm/dL (14.0-18.0); MCH 29.5 pg (26.0-34.0); MCHC 33.3 g/dL (28.0-37.0); MCV 88.6 fL (80.0-100.0); RBC 4.17 mil/uL (4.50-6.00); RDW 15.6 % (10.5-14.5)
[2018-07-16 06:29] LABS: CALCIUM 8.5 mg/dL (8.5-10.1); CREATININE 1.6 mg/dL (0.7-1.3); PHOSPHORUS 3.9 mg/dL (2.5-4.9)
--- NOTE | 2018-07-16 06:30 | NUR ---
ASSUMED CARE OF PT AT 1900. NO SIGNIFICANT CHANGES IN PT'S CONDITION OVERNIGHT. PT UNRESPONSIVE AND HAS JERKING/TREMORS OF EXTREMITIES. ON LOW DOSE OF PROPOFOL AND GIVEN ATIVAN PRN. COREG HELD THIS AM DUE TO SOFT BP. FAMILY AT BEDSIDE, WOULD LIKE TO KNOW MORE ABOUT PT'S NEUROLOGICAL FUNCTION AND PROGNOSIS. WILL BE IN ROOM TODAY TO TALK TO PHYSICIANS. ASSESSMENTS AND VITALS DOCUMENTED. WILL CONTINUE TO MONITOR.
--- NOTE | 2018-07-16 15:17 | NUR ---
PT REMAINS INTUBATED, UNRESPONSIVE. FAMILY MOVING TOWARD WITHDRAWAL OF CARE TOMORROW AROUND 1 PM. PT IS NOW DNR.
--- NOTE | 2018-07-16 17:47 | NUR ---
PATIENT SEDATED AND INTUBATED. SINUS RHYTHM ON RAIL TRACK MAINTAINER. ET TUBE PRESENT. OG TUBE PRESENT, TOLERATING TUBE FEEDINGS. ALVARADO PATENT AND DRAINING. RIGHT UPPER ARM PICC LINE IN PLACE, PROPOFOL AT 10. SKIN INTACT. BLOOD SUGAR MONITORED. FAMILY UPDATED ON PLAN OF CARE AND VERBALIZES UNDERSTANDING. NO SIGNS OF ACUTE DISTRESS NOTED AT THIS TIME. WILL CONTINUE TO MONITOR.
[2018-07-17] VITALS (13 sets, daily range): BP systolic 100–138; BP diastolic 43–66
--- NOTE | 2018-07-17 07:35 | NUR ---
ASSUMED CARE OF PT AT 1900. NO SIGNIFICANT CHANGES OVERNIGHT, PT IS STILL UNRESPONSIVE AND HAS JERKING/TWITCHING INTERMITTENTLY. ATIVAN GIVEN FOR SEIZURE LIKE ACTIVITY; PT REQUIRED ATIVAN MORE FREQUENTLY LAST NIGHT THAN IN PAST NIGHTS. PT WAS VERY SENSITIVE TO ANY PHYSICAL STIMULATION. MTN UPDATED THIS AM. PLAN IS TO WITHDRAW CARE TODAY AT 1300. WILL CONTINUE TO MONITOR.
--- NOTE | 2018-07-17 13:22 | NUR ---
PATIENT EXTOBATED, PLACED ON 2L NASAL CANNULA. FAMILY PRESENT AT THE BEDSIDE, COMFORT MEASURES PROVIDED.
--- NOTE | 2018-07-17 18:45 | NUR ---
PATIENT EXTOBATED AT 1 PM AND PLACED ON COMFORT CARE. PRN MEDICATIONS ADMINISTERED FOR PAIN AND AIR HUNGER. ALVARADO PATENT AND DRAINING, RIGHT UPPER PICC LINE IN PLACE. SCOPOLAMINE PATCH APPLIED. FAMILY UPDATED ON PLAN OF CARE. NO SIGNS OF ACUTE DISTRESS NOTED AT THIS TIME. WILL CONTINUE TO MONITOR.
--- NOTE | 2018-07-18 03:14 | NUR ---
Care assumed at 1900. Pt on comfort care, Morphine and Ativan given approximately q 2 hours for tachypnea and to prevent air hunger. Pt non-responsive. Pt passed at 0215.
--- NOTE | 2018-07-20 11:29 | HC ---
[facility] [place] [address] CONSULTATION Name: ZAKI EPSTEIN JR Room #: 244-P [facility] IN M.R.#: [id number] Admission: 07/11/18 ������������������ Attend Phys: Aroldo Jefferson MD Discharge: 07/18/18 ������������������ Date of : 55 Report #: [id number] THIS REPORT FOR: //name// CC: Aroldo CASANOVA unknown DATE OF SERVICE: 07/11/2018 REASON FOR CONSULTATION: Acute kidney injury and hyperkalemia. HISTORY OF PRESENT ILLNESS: This is a 63-year-old male with a severe history of cardiac disease and cardiomyopathy. Earlier this morning, he had called the EMS and upon transfer to the Emergency Room between 7 and 7:30 this morning, he had a cardiac arrest. He was resuscitated in the ambulance and brought here to the Emergency Room. He had resuscitation with a protocol, gained the heart rhythm back. He is on a temporary pacer at this time. He has required multiple liters of IV fluids upon original presentation. He was also put on different pressors and is on a combination of vasopressin, Levophed and phenylephrine. He has actually gotten a bit better blood pressure this afternoon, although he is very hypotensive to begin with. He has been taken to the cardiac catheterization technician and was noted to have an exceedingly poor left ventricular ejection fraction. He had contrast exposure with that. He also had a CT scan with PE protocol. There is no evidence of pulmonary emboli on that. He had changes consistent with pulmonary edema, which also matched his chest x-ray. Even on the dynamic CT, it was noted he had exceedingly poor cardiac function. He is now in the Intensive Care Unit intubated. We are asked to see him as he has been oligoanuric. He also has the lab values as noted below. PAST MEDICAL HISTORY: The patient has significant history of heart disease as noted above with longstanding cardiomyopathy, also history of some hypertension. I do not have old labs on him, so I am uncertain what his prior renal-related status is. MEDICATIONS: Include Imitrex for cluster headaches and some verapamil and those are the only meds we have listed. ALLERGIES: No known medical allergies. FAMILY HISTORY: Unavailable. SOCIAL HISTORY: The patient is . He lives in [place], [place] address. He is medically disabled. REVIEW OF SYSTEMS: Unavailable. PHYSICAL EXAMINATION: [facility] [address] [place] [address] CONSULTATION Name: ZAKI EPSTEIN Room #: 244-P [facility] IN ..#: [id number] Admission: 07/11/18 ������������������ Attend Phys: Aroldo Jefferson MD Discharge: 07/18/18 ������������������ Date of : 55 Report #: [id number] GENERAL: A 63-year-old male seen in the Intensive Care Unit. He is sedated. He is orally intubated. He has a paced rhythm at this time. VITAL SIGNS: Blood pressure 116/47, temperature 36.6, respiratory rate 18, oxygen saturation 95% on 100% FiO2. HEENT: Shows pupils are 6 mm. I cannot tell that they are reactive at all. Sclerae are nonicteric. He is orally intubated. NECK: Supple. CHEST: Shows somewhat coarse breath sounds bilaterally. HEART: Has a paced rhythm. ABDOMEN: Not distended. I cannot palpate organomegaly or masses. EXTREMITIES: Cool throughout. No peripheral edema. I cannot palpate peripheral pulses. Chest x-ray shows early pulmonary edema changes. LABORATORY DATA: From the time here at the Emergency Room include sodium 141, potassium 3.7, chloride 105, bicarbonate 23, BUN 16, creatinine 1.6, glucose 249 at that time. White count 12.6, hemoglobin 13.3, hematocrit 42.1. Blood gas already at that point showed pH 7.04, pCO2 of 47.6, pO2 of 349 and a lactate of 9.92. Additional labs since that time done at 17:23 show pH 7.14, pCO2 of 40, pO2 of 80. Lactate is down to 6.65. Followup chemistries include sodium 137, potassium 7.2, chloride 105, bicarbonate 16, BUN 20, creatinine 2.6, glucose 93, AST up to 1531, ALT up to 855, calcium 6.9, phosphorus 6.4, magnesium 2.3, albumin 2.2. ASSESSMENT: 1. Currently about 10-11 hours post-cardiac arrest. He has got a paced rhythm and is orally intubated. Hemodynamically is on 3 pressors. Blood pressure is actually holding moderately well at this time. He has a profound cardiomyopathy as noted above and has been reviewed in personal contact with Dr. Ansari. With this amount of cardiomyopathy, we will have to see how he responds to supportive measures overnight, but certainly he has very bad prognostic indicators at this time. 2. Hyperkalemia, severe. He was not hyperkalemic earlier, this has all happened since presentation along with his hypotension, his code and his poor perfusion. I have ordered some high dose albuterol. He is already got high dose of Lasix IV. I will give him a couple of amps of bicarbonate IV. At this point, he does not have room for massive amounts of additional fluid, so we will not give those. 3. Acute kidney injury, currently anuric. Since his blood pressure gotten better, we will try high dose Lasix to see if we can get some urine output. We will treat potassium as noted above. We will treat the acidosis with some IV bicarbonate in a bolus form. If he gets worse or destabilizes, we certainly would have to consider the possibility of doing some renal replacement therapy, ____ cardiac function that will be very difficult if not impossible to make happen. Hopefully, we will get some response to our medication measures. [facility] [address] [place] [address] CONSULTATION Name: ZAKI EPSTEIN Room #: 244-P [facility] IN .R.#: [id number] Admission: 07/11/18 ������������������ Attend Phys: Aroldo Jefferson MD Discharge: 07/18/18 ������������������ Date of : 55 Report #: [id number] 4. Severe cardiomyopathy as noted above. 5. Lactic acidosis related to profound hypotension and under perfusion. 6. Shock liver as noted above. PLAN: 1. Repeat high dose albuterol per aerosol. 2. We will give him a couple of amps of sodium bicarbonate IV. 3. High dose Lasix 100 mg IV push. 4. We will recheck labs in a couple of hours. 5. Closely monitor urine output. 6. Maintain pressure as able. 7. Follow along closely in the care of this critically ill patient. ��������������������������������������������� <ELECTRONICALLY SIGNED> ���������������������������������������� By: Arnoldo Lee MD ��������������������������������������������� 07/20/18 [id number] [id number] Bhargav Amaya MD /nt
== END 2018-07-18 02:15 | DRG 207 ==
LOC: ER 07:17 → EROBS 08:15 → ICU 08:15
PROVIDERS: Emergency Medicine; Internal Medicine Nephrology; Internal Medicine Pulmonary Disease; Nurse Practitioner Gerontology; ADMIT Hospitalist
DX: J96.01 Acute respiratory failure with hypoxia (principal); N17.0 Acute kidney failure with tubular necrosis; K72.00 Acute and subacute hepatic failure without coma; I21.19 ST elevation (STEMI) myocardial infarction involving other coronary artery of inferior wall; G93.1 Anoxic brain damage, not elsewhere classified; I42.9 Cardiomyopathy, unspecified; E87.4 Mixed disorder of acid-base balance; I50.30 Unspecified diastolic (congestive) heart failure; E87.0 Hyperosmolality and hypernatremia; I46.9 Cardiac arrest, cause unspecified; I11.0 Hypertensive heart disease with heart failure; I48.91 Unspecified atrial fibrillation; G25.3 Myoclonus; F12.10 Cannabis abuse, uncomplicated; F14.10 Cocaine abuse, uncomplicated; G40.909 Epilepsy, unspecified, not intractable, without status epilepticus; J96.02 Acute respiratory failure with hypercapnia; E87.5 Hyperkalemia; I95.9 Hypotension, unspecified; I25.10 Atherosclerotic heart disease of native coronary artery without angina pectoris; Z85.46 Personal history of malignant neoplasm of prostate; Z79.899 Other long term (current) drug therapy; Z88.8 Allergy status to other drugs, medicaments and biological substances; Z82.49 Family history of ischemic heart disease and other diseases of the circulatory system; Z28.21 Immunization not carried out because of patient refusal
CPT/HCPCS: 10078; 27000